=== PATIENT | male | born 1980 | race Caucasian/White ===

== ENCOUNTER 2023-03-12 06:45 | Emergency (ER) | payer SELFPAY ==
[2023-03-12 06:52] VITALS: BP 147/89; PULSE 110; RESP 18; TEMP 36.8; O2SAT 99; BMI 21.9
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
--- NOTE | 2023-03-12 07:25 | CRLHL7_ITS ---
For Patients: As a result of the Century Cures Act, medical imaging exams and procedure reports are released immediately into your electronic medical record. You may view this report before your referring provider. If you have questions, please contact your health care provider. Indication: Right scrotal pain and swelling. Technique: Ultrasound of the scrotum and contents. Sonographic graves-scale images were obtained with spectral and color Doppler waveform and spectral waveform analysis of the testicles. Comparison: None available. 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 Venous spectral waveform in the peripheral normal right testicular parenchymal tissues. Normal left testicle. Color doppler blood flow and venous spectral waveforms are present in the left testicle. Epididymis: Unremarkable bilaterally. Normal blood flow. Other: Small right hydrocele. No sign of varicocele. Scrotal wall is normal. Impression: 5.8 cm right testicular mass considered represent carcinoma until proven otherwise. Urology referral is recommended for further management. Dictated by Chadd Farah MD @ 03/12/2023 8:32:56 AM (Electronically Signed)
[2023-03-12 08:10] LABS: Appearance Urine Clear (Clear); Bilirubin Urine 1+ (Negative); Blood Urine 1+ (Negative); Color Urine Amber (Yellow); Glucose Urine Negative (Negative); Ketones Urine Negative (Negative); Leukocyte Esterase Urine Negative (Negative); Nitrite Urine Negative (Negative); Protein Urine 1+ (Negative); Specific Gravity Urine >= 1.030 (1.000-1.030)
[2023-03-12 08:24] LABS: Bacteria Urine Few; Mucus Urine Few; RBC Urine 0-2 (0-2); Squamous Epithelial Cell Urine Few (None-Few); WBC Urine 0-2 (0-5)
--- NOTE | 2023-03-12 08:57 | CRLHL7_ITS ---
For Patients: As a result of the Cures Act, medical imaging exams and procedure reports are released immediately into your electronic medical record. You may view this report before your referring provider. If you have questions, please contact your health care provider. INDICATION: Right testicular mass. History of smoking. TECHNIQUE: Chest 1 views. COMPARISON: None. FINDINGS: Cardiovasculature and mediastinum: Heart size and vasculature are normal in caliber and appearance. Lungs and pleural spaces: Lungs are clear. No sign of infiltrate or mass. No sign of pleural effusion. No pneumothorax. Bones and soft tissues: No significant findings. IMPRESSION: No acute or significant findings. Dictated by Chadd Farah MD @ 03/12/2023 9:25:16 AM (Electronically Signed)
[2023-03-12 09:20] LABS: Basophils Absolute Auto 0.05 K/uL (0.00-0.30); Basophils Percent Auto 0.7 % (0.0-3.0); Eosinophils Absolute Auto 0.09 K/uL (0.00-0.50); Eosinophils Percent Auto 1.3 % (0.0-7.0); Hematocrit 48.8 % (37.0-53.0); Hemoglobin* 16.1 gm/dL (13.5-17.5); Immature Granulocytes Abs Auto 0.01 K/uL (0.00-0.30); Immature Granulocytes Pct Auto 0.1 %; Lymphocytes Percent Auto 19.6 % (20-44); Mean Corpuscular HGB Conc 33 gm/dL (32-36); Mean Corpuscular Hemoglobin 33 pg (26-34); Mean Corpuscular Volume 100 fL (80-100); Monocytes Percent Auto 13.3 % (0.0-11.0); Neutrophils Absolute Auto 4.68 K/uL (1.7-7.0); Platelet Count* 252 K/uL (140-440); RDW Coefficient of Variation % 13.8 % (11.5-15.5)
[2023-03-12 09:21] LABS: Slide Review Reflex No
[2023-03-12 09:25] VITALS: BP 131/92; PULSE 84; RESP 16; O2SAT 97
[2023-03-12 09:35] LABS: Albumin* 3.8 g/dL (3.3-5.0); Chloride* 108 mmol/L (96-114); Sodium* 140 mmol/L (135-149)
[2023-03-12 09:36] LABS: Potassium* 3.8 mmol/L (3.6-5.1)
[2023-03-12 09:38] LABS: Alanine Aminotransferase* 16 U/L (4-50); Alkaline Phosphatase* 157 U/L (40-150); Anion Gap 6 mEq/L (7-15); Aspartate Amino Transferase* 37 U/L (12-35); Bilirubin Total* 0.4 mg/dL (0.1-1.5); Blood Urea Nitrogen* 11 mg/dL (5-24); Carbon Dioxide* 26 mmol/L (20-32); Creatinine* 0.7 mg/dL (0.5-1.5); Estimated Glomerular Filt Rate 117 ml/min; Glucose* 108 mg/dL (60-115); Lactate Dehydrogenase* 396 U/L (120-246); Total Protein* 7.7 g/dL (6.0-8.3)
[2023-03-12 09:39] LABS: Calcium* 9.6 mg/dL (8.4-10.6)
[2023-03-12 09:40] LABS: Chlamydia DNA Amplified* NOT DETECTED (No Detected); GC DNA Amplified* NOT DETECTED (No Detected)
[2023-03-13 15:50] LABS: Beta-hCG Quant Tumor Marker 2 IU/L (0-3)
[2023-03-13 16:32] LABS: Alpha Fetoprotein Tumor Marker 8 ng/mL (0-9)
== END 2023-03-12 09:36 | disposition home or self-care (01) ==
PROVIDERS: Family Medicine; Emergency Provider Family Medicine
DX: N50.9 Disorder of male genital organs, unspecified (principal)
CPT/HCPCS: 36415; 71045; 76870; 80053; 81001; 82105; 83615; 84704; 85025; 87086; 87491; 87591; 93976; 99284